=== PATIENT | male | born 1990 | race Caucasian/White ===

== ENCOUNTER 2018-07-13 10:14 | Emergency (ER) | payer BC, MEDICAID ==
[~2018-07-13] VITALS: Ht 165.1 cm; Wt 72.6 kg
[~2018-07-13 10:14] MED LIST: Insulin
[2018-07-13 10:26] VITALS: BP_SYST 130
[2018-07-13] MEDS ORDERED: PROCHLORPERAZINE EDISYLATE 10 MG/2 ML VIAL IM ONE (11:00)
[2018-07-13] MEDS ORDERED: KETOROLAC TROMETHAMINE 60 MG/2 ML VIAL IM ONE (11:00)
[2018-07-13 12:58] VITALS: BP_SYST 125
== END 2018-07-13 12:58 | disposition home or self-care (01) ==
LOC: SED 10:14
DX: G43.909 Migraine, unspecified, not intractable, without status migrainosus (principal); E11.9 Type 2 diabetes mellitus without complications
CPT/HCPCS: 96372; 99283; J0780; J1885

== ENCOUNTER 2018-11-24 22:16 | Emergency (ER) | payer BC ==
[~2018-11-24] VITALS: Ht 165.1 cm; Wt 72.6 kg
[2018-11-24 22:33] VITALS: BP_SYST 126
--- NOTE | 2018-11-24 22:38 | NUR ---
Patient triaged and placed in waiting room. VSS and patient appears in no acute distress at this time. Accompanied by GIRLFRIEND, awaiting available bed, and MD notified of need for MSE.
--- NOTE | 2018-11-24 23:31 | NUR ---
Patient to ER bed NAVA to gown for evaluation. Side rails up. Report given to ISELA BLAKE.
--- NOTE | 2018-11-24 23:40 | NUR ---
Pt C/O of LT hand chemical exposure. Pt states he was using paint thinner when his glove ripped. Hands were exposed for approximately 30 minutes. States pain is 5/10 no broken skin. Denies any other symptoms at this time. Will continue to monitor
--- NOTE | 2018-11-25 00:43 | NUR ---
ER Dr. Elizabeth at bedside examining patient.
[2018-11-25] MEDS ORDERED: DIPH-TET-PERTUS Vaccine 0.5 ML VIAL (ADACEL) I.M. ONE (01:00)
[2018-11-25] MEDS ORDERED: SILVER SULFADIAZINE 1%, 25 GM TOPICAL CREAM (SSD) TP ONE (01:00)
[2018-11-25] MEDS: IBUPROFEN 600 MG TABLET PO ONE ×2 (01:02→01:09)
--- NOTE | 2018-11-25 01:10 | NUR ---
Pt declined pain medication at this time, stating "I don't really need that right now". Will continue to monitor.
[2018-11-25 02:31] VITALS: BP_SYST 126
--- NOTE | 2018-11-25 02:35 | NUR ---
Patient given written and verbal discharge instructions and verbalizes understanding. ER MD discussed with patient the results and treatment provided. Patient in stable condition. ID arm band removed. Rx of Silvadene given. Patient educated on pain management and to follow up with PMD. Pain Scale 2. Opportunity for questions provided and answered. Medication side effect fact sheet provided.
== END 2018-11-25 02:35 | disposition home or self-care (01) ==
LOC: SED 22:16
DX: T23.401A Corrosion of unspecified degree of right hand, unspecified site, initial encounter (principal); T23.402A Corrosion of unspecified degree of left hand, unspecified site, initial encounter; T65.891A Toxic effect of other specified substances, accidental (unintentional), initial encounter; E11.9 Type 2 diabetes mellitus without complications; Y92.89 Other specified places as the place of occurrence of the external cause
CPT/HCPCS: 90715; 99284